=== PATIENT | male | born 1980 | race Caucasian/White ===

== ENCOUNTER 2018-11-17 10:11 | Emergency (ER) | payer OTHER ==
--- NOTE | 2018-11-17 10:42 | ED ---
Neck Pain - HPI Summary HPI Summary: 38 year old M presenting to [facility] with a chief complaint of right-sided neck pain since yesterday. The patient rates the pain 2/10 in severity. Symptoms aggravated by palpation. Symptoms alleviated by nothing. Patient reports neck swelling. Patient denies right ear pain, sore throat, fever, cough, shortness of breath, chest pain, nausea, vomiting, abdominal pain, BLE swelling or tenderness. He denies recent infection, "lumps" or nodes elsewhere. Patient does not have hx mono. Patient just moved to [place], [place] from [place], [place]. He did have a doctor in [place], listed in his demographics, but has not seen her recently. He has not yet established with a local primary care provider. Patient takes multi vitamins as his only medication.. Vital signs at triage: HR 76 bpm, BP 185/113. Pt states he has "whitecoat HTN", used to take meds for HTN, lost a lot of weight, doesn't take meds anymore. - History of Current Complaint Chief Complaint: EDNeckComplaint Stated Complaint: RIGHT SIDED NECK SHOULDER PAIN/LUMP Hx Obtained From: Patient Onset/Duration Of Injury/Symptoms: Days - 1 Mechanism Of Injury: No Known Trauma Timing: Constant Onset/Duration: Sudden Onset, Started days ago - 1, Still Present Severity Initially: Mild Severity Currently: Mild Pain Intensity: 2 Pain Scale Used: 0-10 Numeric Location: Discrete At: - right neck Character: Aching Aggravating Factors: Other: - palpation Alleviating Factors: Nothing Associated Signs & Symptoms: Positive: Swelling - Allergies/Home Medications Allergies/Adverse Reactions: Allergies Allergy/AdvReac Type Severity Reaction Status Date / Time No Known Allergies Allergy Verified 11/17/18 10:26 PMH/Surg Hx/FS Hx/Imm Hx Previously Healthy: No Endocrine/Hematology History: Reports: Other Endocrine/Hematological Disorders - obesity, lost 70 lbs Cardiovascular History: Reports: Hx Hypertension - "white coat" Denies: Hx Coronary Artery Disease Respiratory History: Denies: Hx Asthma - Surgical History Surgery Procedure, Year, and Place: Tubes in ear as child. Tonsillectomy Infectious Disease History: No Infectious Disease History: Denies: Traveled Outside the [place] in Last 30 Days - Family History Known Family History: Positive: Hypertension, Other - Skin CA - Social History Lives: With Family Alcohol Use: Rare Hx Substance Use: No Substance Use Type: Reports: None Hx Tobacco Use: Yes Smoking Status (MU): Former Smoker Type: Cigarettes Do You Chew or Dip Tobacco: Yes - quit in 2014 Review of Systems Negative: Fever Negative: Sore Throat, Ear Ache - right ear Negative: Chest Pain Negative: Shortness Of Breath, Cough Negative: Abdominal Pain, Vomiting, Nausea Positive: no symptoms reported Musculoskeletal: Negative - BLE edema Positive: Edema - neck, Other - right-sided neck pain Skin: Negative Neurological: Negative Psychological: Normal All Other Systems Reviewed And Are Negative: Yes Physical Exam - Summary Physical Exam Summary: Appearance: Well-appearing, moderate pain distress, well-nourished Skin: Pt's neck is not red. There is a 2-cm red, scaley area that is at the base of his hairline that is 7-cm behind his right pinna. Patient has a scar from mole removal at the base of his right paratracheal area, well healed, not inflamed. Patient has mole removal from one month ago at the left medial aspect of left scapula not inflamed. Patient does not have axillary nodes and no inguinal nodes. Head: Normal Head/Face inspection, atraumatic Eyes: Conjunctiva clear ENT: He has good light reflex in his right ear and white scar on posterior aspect of his R TM. No pharyngeal swelling, no uvula redness and swelling. No leukoplakia Neck: I feel a 2-cm node at base of right neck that is supraclavicular, behind the sternocleidomastoid that is not red, not inflamed or tender upon palpation. I feel a submandibular node on the right that is 1-cm. Both nodes are fixed and non-movable. Respiratory: Lungs clear, normal breath sounds, no respiratory distress Cardio: RRR, No murmur, pulses normal, brisk capillary refill Abdomen: Soft, nontender Bowel sounds: Present Musculoskeletal: Strength Intact/ROM intact, no calf tenderness, no edema. Psychological: Normal Neuro: Alert, muscle tone normal, no focal deficit Triage Information Reviewed: Yes Vital Signs On Initial Exam: Initial Vitals Temp Pulse Resp BP Pulse Ox 98.6 F 76 18 185/113 98 11/17/18 10:21 11/17/18 10:21 11/17/18 10:21 11/17/18 10:11/17/18 10:21 Vital Signs Reviewed: Yes Diagnostics - Vital Signs Vital Signs Temp Pulse Resp BP Pulse Ox 11/17/18 10:21 98.6 F 76 18 185/113 98 - Laboratory Result Diagrams: 11/17/18 11:17 11/17/18 11:17 Lab Statement: Any lab studies that have been ordered have been reviewed, and results considered in the medical decision making process. - CT Neck CT Interpretation Completed By: Radiologist Summary of CT Findings: THE PALPABLE ABNORMALITY CORRESPONDS TO 1.2 CM SUPRACLAVICULAR FOSSA LYMPH NODE WITH SCATTERED SHOTTY SMALL LYMPH NODES NOTED ELSEWHERE ALONG THE ANTERIOR AND POSTERIOR CERVICAL CHAIN. DIFFERENTIAL DIAGNOSIS IS REACTIVE LYMPH NODE VERSUS PATHOLOGIC LYMPH NODE. IF CLINICALLY INDICATED, CONSIDER FURTHER EVALUATION WITH TISSUE SAMPLING. ED physician has reviewed this report. Re-Evaluation - Re-Evaluation First Eval Re-Evaluation Time: 12:44 Change: Unchanged Comment: Patient was given results of his Neck CT. He understands these results and will get follow up. BP 141/106. Neck Course/Dx - Course Course Of Treatment: Reviewed nurses note. Patient medications reviewed this visit. Allergies noted. High blood pressure noted. Bloodwork was unremarkable for any abnormalities. Monospot was negative. Lyme serology is pending at this time. Neck CT shows THE PALPABLE ABNORMALITY CORRESPONDS TO 1.2 CM SUPRACLAVICULAR FOSSA LYMPH NODE WITH SCATTERED SHOTTY SMALL LYMPH NODES NOTED ELSEWHERE ALONG THE ANTERIOR AND POSTERIOR CERVICAL CHAIN. DIFFERENTIAL DIAGNOSIS IS REACTIVE LYMPH NODE VERSUS PATHOLOGIC LYMPH NODE. IF CLINICALLY INDICATED, CONSIDER FURTHER EVALUATION WITH TISSUE SAMPLING. Patient was given these results. Patient was instructed to establish a primary care provider as soon as possible. He was given [facility] physician referral number and [facility] referral number. He was told to return to the emergency department for new or worsening symptoms. Patient understands and is agreeable to discharge. - Diagnoses Differential Dx/HQI/PQRI: Positive: Adenitis, Neoplasm, Other - Reactive lymphadenopathy Provider Diagnoses: Lymphadenopathy of head and neck, Hypertension, poor control Discharge - Sign-Out/Discharge Documenting (check all that apply): Patient Departure - Discharge Patient Received Moderate/Deep Sedation with Procedure: No - Discharge Plan Condition: Stable Disposition: HOME Patient Education Materials: Lymphadenopathy (ED) Referrals: [facility] [Outside] - 2 Days [facility] PHYSICIAN REFERRAL [Outside] - As Soon As Possible Nina DUQUE,Alysha Ng [Primary Care Provider] - Additional Instructions: Your white blood cell count is normal and does not show any abnormal forms so the lump you feel is unlikely to be a leukemia or lymphoma. The monospot is negative. The Lyme serology is pending at this time. You will need to make sure you find out this result in 4-5 days. You will need to get established with a primary care provider as soon as possible. You may call the [facility] Referral number to assist you with that. You also may be seen in the [facility] clinic in a short time 2-3 days if you have problems that need medical attention before you can get an appointment with a primary care provider. Return to the emergency department for new or worsening symptoms - Billing Disposition and Condition Condition: STABLE Disposition: Home - Attestation Statements Document Initiated by Ivanna: Yes Documenting Scribe: Yani Miller Provider For Whom Ivanna is Documenting (Include Credential): Kirsten Lau MD Scribe Attestation: Yani Calderon, scribed for Kirsten Lau MD on 11/20/18 at 1816. Scribe Documentation Reviewed: Yes Provider Attestation: The documentation as recorded by the Yani devries accurately reflects the service I personally performed and the decisions made by me, Kirsten Lau MD Status of Ivanna Document: Viewed
[2018-11-17] MEDS ORDERED: NS 0.9% 1000 ML** 1,000 ML IV ONE (10:56)
[2018-11-17 11:27] LABS: ABS Basophils 0.1 10^3/ul (0-0.2); ABS Eosinophils 0.1 10^3/ul (0-0.6); ABS Lymphocytes 1.6 10^3/ul (1.0-4.8); ABS Monocytes 0.5 10^3/ul (0-0.8); ABS Neutrophils 3.2 10^3/ul (1.5-7.7); ABS Nucleated RBC 0 10^3/ul; Eosinophil % 1.4 %; Hematocrit 46 % (42-52); Hemoglobin 15.5 g/dl (14.0-18.0); Lymphocyte % 28.4 %; Mean Corpuscular HGB Conc 34 g/dl (31-36); Mean Corpuscular Hemoglobin 30 pg (27-31); Mean Corpuscular Volume 90 fL (80-94); Mean Platelet Volume 7.4 fL (7.4-10.4); Nucleated Red Blood Cells % 0; Platelet Count 366 10^3/ul (150-450); Red Blood Count 5.13 10^6/ul (4.00-5.40); Red Cell Distribution Width 14 % (10.5-15); White Blood Count 5.5 10^3/ul (3.5-10.8)
[2018-11-17 11:38] LABS: INR 0.9 (0.77-1.02)
[2018-11-17 11:51] LABS: Albumin 4.2 g/dL (3.2-5.2); Albumin/Globulin Ratio 1.6 (1-3); BUN/Creatinine Ratio 18.6 (8-20); C Reactive Protein 5.69 mg/L (<8.01); Calcium 9.4 mg/dL (8.6-10.3); EGFR African American 152.7 (>60); EGFR Non-African American 126.2 (>60); Globulin 2.7 g/dL (2-4); Total Bilirubin 0.4 mg/dL (0.2-1.0); Total Protein 6.9 g/dL (6.4-8.9)
[2018-11-17] MEDS ORDERED: Iohexol 300* (CONTRAST) 10 ML SDV IV ONE (12:15)
[2018-11-17 13:20] VITALS: BP 131/84
[2018-11-19 22:18] LABS: B garinii/B afzelii PCR Negative (Negative); B mayonii PCR Negative (Negative)
== END 2018-11-17 13:19 | disposition home or self-care (01) ==
LOC: ED 10:11
DX: R59.0 Localized enlarged lymph nodes (principal); I10 Essential (primary) hypertension; Z87.891 Personal history of nicotine dependence
CPT/HCPCS: 36415; 70491; 80053; 83605; 85025; 85610; 86140; 86308; 87476; 87798; 96360; 99282; Q9967

== ENCOUNTER 2019-05-30 08:30 | Emergency (ER) | payer OTHER ==
[2019-05-30 08:40] VITALS: BP 169/98
--- NOTE | 2019-05-30 10:45 | UC ---
Throat Pain/Nasal Omero HPI - HPI Summary HPI Summary: 39 y/o male presents to the urgent care c/o B/l ear pain and sore throat for 1 day. Pt reports her children and started w/ similar symptoms and now they have ear infections and taken antibiotics. Pt states pain is 3/10. This morning he walked up w/ sinus congestion and clear nasal discharge. He has not taken anything to alleviate symptoms. Pt denies fever, MALDONADO, neck pain, dizziness , SOB, cough, chest pain, abdominal pain, N/V/d. - History of Current Complaint Chief Complaint: UCGeneralIllness Stated Complaint: SORE THROAT EAR PAIN Time Seen by Provider: 05/30/19 10:42 Hx Obtained From: Patient Onset/Duration: Gradual Onset, Lasting Days - 1 day, Still Present Severity: Mild Pain Intensity: 3 - sore throat Pain Scale Used: 0-10 Numeric Cough: None Associated Signs & Symptoms: Positive: Nasal Discharge - clear. Negative: Dysphagia, Wheezing, Fever - Epiglottits Risk Factors Epiglottis Risk Factors: Negative - Allergies/Home Medications Allergies/Adverse Reactions: Allergies Allergy/AdvReac Type Severity Reaction Status Date / Time No Known Allergies Allergy Verified 05/30/19 08:41 PMH/Surg Hx/FS Hx/Imm Hx Previously Healthy: Yes - Pt denies PMHX - Surgical History Surgical History: Yes Surgery Procedure, Year, and Place: Tubes in ear as child. Tonsillectomy - Family History Known Family History: Positive: Hypertension, Other - Skin [place] - Social History Occupation: Employed Full-time Lives: With Family Alcohol Use: Rare Substance Use Type: None Smoking Status (MU): Former Smoker Type: Cigarettes Review of Systems All Other Systems Reviewed And Are Negative: Yes Constitutional: Positive: Negative Skin: Positive: Negative Eyes: Positive: Negative ENT: Positive: Sore Throat, Ear Ache - B/L ear pain, Nasal Discharge - clear, Sinus Congestion Respiratory: Positive: Negative Cardiovascular: Positive: Negative Gastrointestinal: Positive: Negative Genitourinary: Positive: Negative Motor: Positive: Negative Neurovascular: Positive: Negative Musculoskeletal: Positive: Negative Neurological: Positive: Negative Psychological: Positive: Negative Is Patient Immunocompromised?: No Physical Exam - Summary Physical Exam Summary: VITAL SIGNS: Reviewed. GENERAL: Patient is a well developed and nourished male who is sitting comfortably in the examining table. Patient is not in any acute respiratory distress. HEAD AND FACE: No signs of trauma. No ecchymosis, hematomas or skull depressions. No sinus tenderness. EYES: PERRLA, EOMI x 2, No injected conjunctiva, no nystagmus. No photophobia. EARS: Hearing grossly intact. Ear canals and tympanic membranes are within normal limits. MOUTH: Positive pharynx with mild erythema, no exudates, No B/L tonsillar enlargement , no exudate. Uvula in midline. edematous nasal mucosa w/ clear nasal discharge, clear PND NECK: Supple, trachea is midline, Positive anterior cervical lymphadenopathy, no JVD, no carotid bruit, no c-spine tenderness, neck with full ROM. No meningeal signs, no Kernig's or brudzinskis signs. CHEST: Symmetric, no tenderness at palpation LUNGS: Clear to auscultation bilaterally. No wheezing or crackles. CVS: Regular rate and rhythm, S1 and S2 present, no murmurs or gallops appreciated. ABDOMEN: Soft, non-tender. No signs of distention. No rebound no guarding, and no masses palpated. Bowel sounds are normal. EXTREMITIES: FROM in all major joints, no edema, no cyanosis or clubbing. NEURO: Alert and oriented x 3. No acute neurological deficits. Pt follows commands. SKIN: Dry and warm Triage Information Reviewed: Yes Vital Signs: Initial Vital Signs Temp 98 F 05/30/19 08:38 Pulse 86 05/30/19 08:38 Resp 17 05/30/19 08:38 BP 169/98 05/30/19 08:38 Pulse Ox 100 05/30/19 08:38 Throat Pain/Nasal Course/Dx - Course Course Of Treatment: 39 y/o male presents to the urgent care c/o B/l ear pain and sore throat for 1 day. Pt reports her children and started w/ similar symptoms and now they have ear infections and taken antibiotics. Pt states pain is 3/10. This morning he walked up w/ sinus congestion and clear nasal discharge. He has not taken anything to alleviate symptoms. Pt denies fever, MALDONADO, neck pain, dizziness , SOB, cough, chest pain, abdominal pain, N/V/d. Hx obtained. Pt w/ URI on examination. Rapid strep: negative. Pt Rx Flonase nasal spray and advised to use saline drops to clear sinuses and to take ibuprofen PO to alleviates symptoms of pain and swelling. Advised on hand washing to avoid spreading. Pt advised to rest, eat well and avoid strenuous exercise. If symptoms do not improve or worsen advised to return to the urgent care or f/u with her PCP for further evaluation and treatment. Pt's BP is elevated today advised to decrease salt in diet, monitor BP and f/u with PCP for further management. D/C instructions explained. Pt understood and agreed w/ plan of care. - Differential Dx/Diagnosis Differential Diagnosis/HQI/PQRI: Laryngitis, Mononucleosis, Otitis Media, Pharyngitis, Tonsillitis, URI Provider Diagnosis: Upper respiratory infection, Elevated BP without diagnosis of hypertension Discharge ED - Sign-Out/Discharge Documenting (check all that apply): Patient Departure - d/c home All imaging exams completed and their final reports reviewed: No Studies - Discharge Plan Condition: Stable Disposition: HOME Prescriptions: Fluticasone NASAL SPRAY 50MCG* [Flonase NASAL SPRAY 50MCG*] 2 spray BOTH NARES DAILY #1 btl Patient Education Materials: Upper Respiratory Infection (ED) Forms: *Work Release Referrals: Ambrose Manzanares, WIRELINE OPERATOR [Primary Care Provider] - 3 Days Additional Instructions: 1-Please take ibuprofen PO q6-8hrs prn as instructed after meals to alleviate pain and swelling. Increase fluid intake, eat well, rest and avoid strenuous exercise. 2- Use saline drops and flonase nasal spray as directed to clear sinuses 3-If symptoms do not improve or worsen please return to the urgent care or f/u with your PCP for further evaluation and treatment. 4-Your BP is elevated today. Please take your BP medications and decrease salt in your diet, monitor BP and if it continues to be elevated please f/u with your PCP for further management. If you develop chest pain, dizziness, visual disturbances, SOB, or severe MALDONADO please go immediately to the ER for further management - Billing Disposition and Condition Condition: STABLE Disposition: Home
== END 2019-05-30 11:15 | disposition home or self-care (01) ==
LOC: UCEAST 08:30
DX: J06.9 Acute upper respiratory infection, unspecified (principal); R03.0 Elevated blood-pressure reading, without diagnosis of hypertension; Z87.891 Personal history of nicotine dependence
CPT/HCPCS: 87651; 99212; G0463